=== PATIENT | male | born 1995 | race Caucasian/White ===

== ENCOUNTER 2025-04-28 10:03 | Day surgery (SDC) | payer OTHER ==
[~2025-04-28] VITALS: Ht 180.3 cm; Wt 81.6 kg
[~2025-04-28 10:03] MED LIST: ACETAMINOPHEN 1000MG/100ML IV BAG As Ordered ONE; LIDOCAINE 2% 100 MG/5 ML SDV (FOR ANES.) As Ordered ONE; ONDANSETRON 4MG/2ML VIAL As Ordered ONE; ROCURONIUM BROMIDE 50MG/5ML VIAL As Ordered ONE; SUGAMMADEX SODIUM 500 MG/5 ML VIAL As Ordered ONE; dexAMETHasone 4 MG/ML 1 ML VIAL As Ordered ONE; dexmedeTOMIDine (4 MCG/ML) 200 MCG/50 ML BTL As Ordered ONE
[2025-04-28] MEDS: CelecoXIB 400 MG CAP PO ONE (11:01)
[2025-04-28] MEDS ORDERED: LR 1,000 ML IV SCH (11:10)
[2025-04-28] MEDS: SCOPOLAMINE 1MG TRANSDERMAL PATCH TOP ONE (13:03)
[2025-04-28] MEDS ORDERED: MIDAZOLAM INJ 2 MG/2 ML VIAL As Ordered ONE (13:27)
[2025-04-28] MEDS: ceFAZolin SOD 2 GM IV ONCE IV ONE (14:30)
[2025-04-28] MEDS: LIDOCAINE 1% SDV 30 ML VIAL As Ordered ONE (15:57)
[2025-04-28] MEDS ORDERED: ONDANSETRON 4MG/2ML VIAL IV PRN (16:10)
[2025-04-28 18:45] VITALS: BP 126/68; TEMP 97.5; O2SAT 100
== END 2025-04-28 19:49 | disposition home or self-care (01) ==
LOC: M SDC 10:03
PROVIDERS: ATTEND Surgery
DX: K40.90 Unilateral inguinal hernia, without obstruction or gangrene, not specified as recurrent (principal); D17.6 Benign lipomatous neoplasm of spermatic cord
CPT/HCPCS: 49650; C1781; J0131; J0665; J0688; J1100; J2250; J2405; J2765; J3010; S2900